=== PATIENT | female | born 1965 | race Caucasian/White ===

== ENCOUNTER 2020-05-27 12:23 | Outpatient (REF) | payer MEDICARE, MEDICAID, SELFPAY ==
[2020-05-27 14:06] LABS: Estimated Average Glucose 157 mg/dL; Hemoglobin A1c % 7.1 %
[2020-05-27 14:18] LABS: Alanine Aminotransferase 17 U/L (0-31); Albumin Level 4.5 g/dL (3.5-5.0); Alkaline Phosphatase 93 U/L (39-117); Anion Gap 15 (12-20); Aspartate Amino Transferase 15 U/L (5-31); Bilirubin Total 0.5 mg/dL (0.0-1.0); Blood Urea Nitrogen 22 mg/dL (9-16); Calcium 9.5 mg/dL (8.4-10.2); Carbon Dioxide 26 mmol/L (22-29); Chloride 103 mmol/L (96-108); Estimated Glomerular Filt Rate > 60; Glucose Random 140 mg/dL (60-115); Potassium 4.8 mmol/l (3.3-5.1); Sodium 139 mmol/L (135-145); Total Protein 7.8 g/dL (6.5-8.0)
[2020-05-27 14:42] LABS: Thyroid Stimulating Hormone 1.69 uIU/mL (0.32-4.0)
== END 2020-05-27 12:24 | disposition home or self-care (01) ==
LOC: HO.LAB 12:23
PROVIDERS: PCP Internal Medicine; Visit Provider Internal Medicine
DX: E03.9 Hypothyroidism, unspecified (principal); E11.9 Type 2 diabetes mellitus without complications; I10 Essential (primary) hypertension
CPT/HCPCS: 80053; 83036; 84443

== ENCOUNTER 2023-01-22 05:10 | Emergency (ER) | payer OTHER, SELFPAY ==
[2023-01-22 05:15] VITALS: BP 156/94; PULSE 123; RESP 20; TEMP 36.1; O2SAT 95; BMI 31.7
[2023-01-22 05:31] LABS: MANUAL DIFF FLAG NO
[2023-01-22 05:32] LABS: Basophils Percent Auto 0.2 % (0-2); Eosinophils Percent Auto 0.1 % (0-4); Hematocrit 40.9 % (37.0-47.0); Hemoglobin 13.7 g/dl (12.0-16.0); Imm Gran Abs Auto 0.07 X10*3/uL (0.00-0.03); Imm Gran Pct Auto 0.5 % (0.0-0.4); Lymphocytes Absolute Auto 0.9 X10*3/uL (1.2-4.9); Lymphocytes Percent Auto 6.1 % (20-40); Mean Corpuscular HGB Conc 33.5 g/dl (31.0-35.0); Mean Corpuscular Hemoglobin 27.7 pg (27.0-33.0); Mean Corpuscular Volume 82.6 fL (80.0-98.0); Mean Platelet Volume 10.6 fL (9.4-12.3); Monocytes Absolute Auto 0.5 X10*3/uL (0.1-1.2); Monocytes Percent Auto 3.5 % (2-11); Neutrophils Percent Auto 89.6 % (45-73); Platelet Count 403 X10*3/uL (160-400); Red Blood Count 4.95 X10*6/uL (4.20-5.50); Red Cell Distribution Width 12.7 % (11.0-16.0); White Blood Count 14.5 X10*3/uL (4.8-10.8)
[2023-01-22 05:45] LABS: Alanine Aminotransferase 23 U/L (0-31); Albumin Level 4.6 g/dL (3.5-5.0); Alkaline Phosphatase 94 U/L (39-117); Anion Gap 16 (12-20); Aspartate Amino Transferase 18 U/L (5-31); Bilirubin Total 0.8 mg/dL (0.0-1.0); Blood Urea Nitrogen 24 mg/dL (9-16); Calcium 10.1 mg/dL (8.4-10.2); Carbon Dioxide 20 mmol/L (22-29); Chloride 105 mmol/L (96-108); Creatinine Clr Calc Pharmacy 77.1; Estimated Glomerular Filt Rate > 60; Glucose Random 278 mg/dL (60-115); Lipase 21 U/L (8-78); Potassium 3.9 mmol/L (3.3-5.1); Sodium 137 mmol/L (135-145); Total Protein 8.3 g/dL (6.5-8.0)
[2023-01-22 06:33] LABS: Appearance Urine Clear; Color Urine Yellow; Glucose Urine UA >=1000 mg/dL (Negative); Leukocyte Esterase Urine Negative (Negative); Nitrite Urine Negative (Negative); PH 5.5 (5.0-9.0); Specific Gravity - Urine >= 1.030 (1.005-1.025); UMIC TRIGGER UACC YES; Urine Blood Small (1+) (Negative); Urine Ketones 15 mg/dL (Negative); Urine Protein 100 (2+) mg/dL (Neg-Trace)
[2023-01-22 06:38] LABS: Bacteria Urine None Seen (None Seen); Hyaline Casts Urine 0-2 /LPF (0-2); WBC Urine 0-5 /HPF (0-5)
--- NOTE | 2023-01-22 06:55 | ED.NAVMDI ---
HPI - Nausea/Vomiting/Diarrhea General Chief complaint: Abdominal Pain Stated complaint: n/v/d Time Seen by Provider: 01/22/23 06:34 Source: patient Mode of arrival: ambulatory Limitations: no limitations History of Present Illness HPI Narrative: 57-year-old female with history of DM2 who presents to the ER for evaluation of nausea, vomiting, diarrhea and upset stomach that started around 930 last night. She states she developed nausea last night after going out for eating pizza and chicken wings. She then started having violent episodes of vomiting and diarrhea simultaneously. There was no blood in either her diarrhea or her vomitus. She states she has upper abdominal pain and cramping along with these episodes. She states she has had 9 episodes of diarrhea and multiple episodes of vomiting. No fever or chills. No one else at home is sick. who weight is the same dinner is not ill. MD elicited complaint: nausea, vomiting and diarrhea Onset (ago): hour(s) Description of vomiting: food contents Description of diarrhea: watery Associated nausea: Yes Associated abdominal pain: Yes Location of pain: diffuse Pain consistency: intermittent Severity: moderate Quality: cramping Exacerbating factors: eating Relieving factors: none Context: possible food poisoning Associated symptoms: nausea/vomiting and weakness Related Data Previous Rx's Medication Instructions Recorded pioglitazone 15 mg tablet 15 mg PO DAILY #30 caps 10/19/20 loperamide 2 mg capsule 2 mg PO Q6H PRN loose stool #20 01/22/23 (Anti-Diarrheal (loperamide)) caps ondansetron 4 mg disintegrating 4 mg PO Q8H PRN nausea and 01/22/23 tablet vomiting #7 tabs Allergies Allergy/AdvReac Type Severity Reaction Status Date / Time latex [LATEX] Allergy Unknown RASH Verified 01/22/23 05:15 lisinopril [LISINOPRIL] Allergy Unknown COUGH AND Verified 01/22/23 05:15 DRY MOUTH topiramate [From TOPAMAX] Allergy Unknown STOMACH Verified 01/22/23 05:15 UPSET Review of Systems Review of Systems: Yes all other systems are reviewed and are negative Gastrointestinal: Gastrointestinal: Reports nausea PMFSH Past Medical History Medical History (Updated 01/22/23 @ 10:01 by MINERVA Palomares) Diabetes type 2, uncontrolled Social History Social History Alcohol intake: never Smoked in Last 30 Days: No Use of substances other than those prescribed or required for medical reasons: No Advance Directives: No Physical Exam Vital Signs: Vital Signs: Last Vital Signs Temp 98.0 F 01/22/23 07:01 Pulse 103 H 01/22/23 08:48 Resp 14 01/22/23 08:48 BP 151/76 H 01/22/23 08:48 Pulse Ox 96 01/22/23 08:48 O2 Del Method Room Air 01/22/23 08:48 BMI result Body Mass Index 31.7 Appearance: Alert. Oriented X3. No acute distress. Head: normocephalic, atraumatic. Eyes: Pupils equal, round and reactive to light. ENT: Pharynx with dry mucous member. No tonsillar swelling or exudate. Neck: Normal inspection. Neck supple. CVS: Tachycardia, regular rhythm, heart rate low 100s Pulses normal. Respiratory: No respiratory distress. Breath sounds normal. Abdomen: Soft with tenderness of the epigastric area only, no rebound or guarding. Hyperactive +BS x4 Skin: Skin warm and dry. Normal skin color. Normal skin turgor. No rashes. Extremities: No lower extremity edema. No joint swelling. Neuro/psych: Oriented X 3. No motor deficit. No sensory deficit. CN II-XII intact. Normal speech and cognition. Medications Administered Discontinued Medications Generic Name Dose Route Start Last Admin Trade Name Tomasq PRN Reason Stop Dose Admin Acetaminophen 975 mg 01/22/23 07:09 01/22/23 07:17 Acetaminophen 325 Mg Tablet PO 01/22/23 07:10 975 mg ONCE ONE Administration Lactated Ringer's 1,000 mls @ 999 mls/hr 01/22/23 07:00 01/22/23 08:53 Lr IV 01/22/23 08:00 Infused .Q1H1M ALEXEY Infusion Sodium Chloride 1,000 mls @ 999 mls/hr 01/22/23 08:45 01/22/23 08:53 Ns IVCONT 01/22/23 09:45 999 mls/hr .Q1H1M ALEXEY Administration Ondansetron HCl 4 mg 01/22/23 06:49 01/22/23 07:17 Ondansetron Hcl 4 Mg/2 Ml Vial IVPUSH 01/22/23 06:50 4 mg ONCE ONE Administration Medical Decision Making Medical Decision Making MDM Narrative: 57-year-old female presents to the ER for evaluation of acute onset of nausea, vomiting, diarrhea and abdominal pain that started last night. Arrives to the ER tachycardic and complaining of dry mouth. She appears dry clinically. Her lab workup was revealing for white blood cell count of 14.5. This is likely reactive from vomiting. Her liver function tests are within normal limits, doubt acute cholecystitis, biliary colic, pancreatitis or choledocholithiasis. She was given IV fluids, Zofran, Tylenol for headache. She is feeling better. Tachycardia improved. She is tolerating PO. No diarrhea episodes to be able to collect stool sample. At this time she is stable for d/c home w/ supportive care. UA w/ microscopic hematuria. Patient encourage follow up with primary care to ensure resolution of this. She is stable for discharge home with outpatient follow-up Differential Diagnosis Differential Diagnoses: The differential diagnosis associated with the presentation includes Viral gastroenteritis, bacterial gastroenteritis, food poisoning, dehydration, electrolyte abnormality, acute cholecystitis, colitis, Admission/Observation Consideration of admission/observation: Escalation of care including admission/observation considered Recurrent nausea and vomiting with abdominal pain with tachycardia, insert observation and admission Lab Data [facility] Lab Attestation statement: I reviewed the patient's lab results. Leukocytosis, thrombocytosis, hyperglycemia without anion gap 01/22/23 05:26 01/22/23 05:26 Labs: Lab Results 01/22/23 01/22/23 01/22/23 Range/Units 05:26 05:26 06:25 WBC 14.5 H (4.8-10.8) X10*3/uL RBC 4.95 (4.20-5.50) X10*6/uL Hgb 13.7 (12.0-16.0) g/dl Hct 40.9 (37.0-47.0) % MCV 82.6 (80.0-98.0) fL MCH 27.7 (27.0-33.0) pg MCHC 33.5 (31.0-35.0) g/dl RDW 12.7 (11.0-16.0) % Plt Count 403 H (160-400) X10*3/uL MPV 10.6 (9.4-12.3) fL Immature Gran % (Auto) 0.5 H (0.0-0.4) % Neut % (Auto) 89.6 H (45-73) % Lymph % (Auto) 6.1 L (20-40) % [place] % (Auto) 3.5 (2-11) % Eos % (Auto) 0.1 (0-4) % Baso % (Auto) 0.2 (0-2) % Lymph # (Auto) 0.9 L (1.2-4.9) X10*3/uL [place] # (Auto) 0.5 (0.1-1.2) X10*3/uL Eos # (Auto) 0.0 (0.0-0.4) X10*3/uL Baso # (Auto) 0.0 (0.0-0.2) X10*3/uL Abs Immat Gran (auto) 0.07 H (0.00-0.03) X10*3/uL Absolute Neuts (auto) 13.0 H (2.0-8.3) x10*3/uL Absolute Nucleated RBC 0.000 (0.0-0.012) X10*3/uL Nucleated RBC % (auto) 0.0 (0.0-0.2) /100WBC Sodium 137 (135-145) mmol/L Potassium 3.9 (3.3-5.1) mmol/L Chloride 105 (96-108) mmol/L Carbon Dioxide 20 L (22-29) mmol/L Anion Gap 16 (12-20) BUN 24 H (9-16) mg/dL Creatinine 0.77 (0.5-1.4) mg/dL Estim Creat Clear Calc 77.1 Estimated GFR > 60 Random Glucose 278 H (60-115) mg/dL Calcium 10.1 D (8.4-10.2) mg/dL Total Bilirubin 0.8 (0.0-1.0) mg/dL AST 18 (5-31) U/L ALT 23 (0-31) U/L Alkaline Phosphatase 94 (39-117) U/L Total Protein 8.3 H (6.5-8.0) g/dL Albumin 4.6 (3.5-5.0) g/dL Lipase 21 (8-78) U/L Urine Color Yellow Urine Appearance Clear Urine pH 5.5 (5.0-9.0) Ur Specific [place] >= 1.030 H (1.005-1.025) Urine Protein 100 (2+) H (Neg-Trace) mg/dL Urine Glucose (UA) >=1000 H (Negative) mg/dL Urine Ketones 15 (Negative) mg/dL Urine Blood Small (1+) H (Negative) Urine Nitrite Negative (Negative) Ur Leukocyte Esterase Negative (Negative) Urine RBC 6-10 H (0-2) /HPF Urine WBC 0-5 (0-5) /HPF Ur Squamous Epith Cells 3-5 (0-2) /HPF Urine Bacteria None Seen (None Seen) Hyaline Casts 0-2 (0-2) /LPF External Record Review External record reviewed: Prior outpatient labs Tests considered The following testing was considered but not selected: Consider CT scan of the abdomen however her abdomen was soft with only epigastric tenderness and no LFT derangement Prescription Management I considered prescription management with: Other (Antiemetic) Chronic Conditions Patient?s care impacted by: Diabetes Critical Care Time Critical Care Time Critical Care Time: No Discharge Plan Discharge Clinical Impression: Gastroenteritis, Asymptomatic microscopic hematuria Patient Disposition: Home, Self-Care Instructions: Gastroenteritis (DC) Additional Instructions: You lab workup today was unremarkable aside from an elevated white blood cell count which is common with vomiting and illness. Your urine test showed trace amount of blood in the urine. Recommend getting a repeat urine test with your doctor when you are feeling better to make sure this resolves. You most likely have a viral GI bug also known as gastroenteritis. Treatment is supportive care, symptoms usually resolve on their own in 48-72 hours. Recommend rest and plenty of oral hydration. Stick to a bland diet like soup and toast while you are not feeling well. Take the prescribed medication as needed for nausea. Recommend over the counter Pepto Bismol or Imodium for upset stomach and diarrhea. Follow up with your doctor as needed. If you develop new or worsening symptoms call 911 or come back to the ER for further evaluation. Prescriptions: New ondansetron 4 mg tablet,disintegrating 4 mg PO Q8H PRN (Reason: nausea and vomiting) Qty: 7 0RF loperamide [Anti-Diarrheal (loperamide)] 2 mg capsule 2 mg PO Q6H PRN (Reason: loose stool) Qty: 20 0RF No Action pioglitazone 15 mg tablet 15 mg PO DAILY Qty: 30 3RF
[2023-01-22 07:01] VITALS: BP 123/80; PULSE 107; RESP 16; TEMP 36.7; O2SAT 93
[2023-01-22] MEDS: Lactated Ringers 1,000 ML 999 ML IV (07:14)
[2023-01-22] MEDS: ondansetron HCL 4 MG/2 ML VIAL IVPUSH (07:17)
[2023-01-22] MEDS: Acetaminophen 325 MG TABLET 975 MG PO (07:17)
--- NOTE | 2023-01-22 07:27 | PC.NURSE ---
a&ox3. skin warm pink and dry. respirations even and unlabored. abdomen soft but tender to touch in the left upper quadrant. pt reporting nausea, vomiting and diarrhea since 9pm last night. pt denies chest pain. pt reporting a headache. pt medicated per aug. vss.
[2023-01-22 08:48] VITALS: BP 151/76; PULSE 103; RESP 14; O2SAT 96
[2023-01-22] MEDS: 0.9 % Sodium Chloride 1,000 ML 999 ML IVCONT (08:53)
== END 2023-01-22 10:17 | disposition home or self-care (01) ==
PROVIDERS: Emergency Provider Emergency Medicine Emergency Medical Services; PCP Internal Medicine
DX: K52.9 Noninfective gastroenteritis and colitis, unspecified (principal); R31.9 Hematuria, unspecified; R11.2 Nausea with vomiting, unspecified; R10.13 Epigastric pain; Z79.899 Other long term (current) drug therapy
CPT/HCPCS: 36415; 80053; 81001; 83690; 85025; 96361; 96365; 96375; 99284; 99285; J2405